=== PATIENT | male | born 1955 | race Caucasian/White ===

== ENCOUNTER → 2019-03-29 | Outpatient (CLI) | payer OTHER, BC ==
--- NOTE | 2019-03-29 10:14 | PCVCIMAG ---
APPROVED REPORT Study performed: 03/29/2019 08:40:20 EXAM: Comprehensive 2D, Doppler, and color-flow Echocardiogram Patient Location: Echo lab Status: routine BSA: 2.45 HR: 60 bpmBP: 150/78 mmHg Rhythm: NSR Other Information Study Quality: Adequate Risk Factors: Cardiac Risk Factors: Hyperlipidemia Indications CAD elevated calcium score 2D Dimensions IVSd: 11.81 (7-11mm) LVDd: 54.91 mm PWd: 12.01 (7-11mm)Ascending Ao: 38.77 (22-36mm) LVDs: 41.94 (25-40mm) Left Atrium: 47.61 (27-40mm) Aortic Root: 38.05 mm LV Single Plane 4CH: 60.45 % LV Single Plane 2CH: 65.44 % Biplane EF: 63.0 % Volumes Left Atrial Volume (Systole) Single Plane 4CH: 100.48 mLSingle Plane 2CH: 111.55 mL LA ESV Index: 44.00 mL/m2 Aortic Valve AoV Peak Gabino.: 1.44 m/s AO Peak Gr.: 8.24 mmHgLVOT Max P.01 mmHg LVOT Max V: 1.12 m/s Mitral Valve E/A Ratio: 1.7 MV Decel. Time: 218.96 ms MV E Max Gabino.: 0.83 m/s MV A Gabino.: 0.50 m/s IVRT: 96.89 ms Pulmonary Valve PV Peak Gabino.: 0.88 m/sPV Peak Gr.: 3.09 mmHg Pulmonary Vein P Vein S: 0.63 m/sP Vein A: 0.34 m/s P Vein D: 0.66 m/sP Vein A Dur.: 159.2 msec P Vein S/D Ratio: 0.95 Tricuspid Valve TR Peak Gabino.: 2.85 m/s TR Peak Gr.: 32.45 mmHg Left Ventricle The left ventricle is normal size. There is normal LV segmental wall motion. Mild concentric left ventricular hypertrophy. Left ventricular systolic function is normal. The left ventricular ejection fraction is within the normal range. LVEF is 60%. Grade II - pseudonormal filling dynamics. Right Ventricle The right ventricle is normal size. The right ventricular systolic function is normal. Atria Left atrium is moderately dilated. The right atrium size is normal. Aortic Valve The aortic valve is normal in structure. No aortic regurgitation is present. There is no aortic valvular stenosis. Mitral Valve The mitral valve is normal in structure. Trace mitral regurgitation. No evidence of mitral valve stenosis. Tricuspid Valve The tricuspid valve is normal in structure. Mild tricuspid regurgitation with PAP of 39 mmHg. Pulmonic Valve The pulmonary valve is normal in structure. There is no pulmonic valvular regurgitation. Great Vessels The aortic root is normal in size. The ascending aorta is borderline dilated to 3.9 cm. IVC is normal in size and collapses >50% with inspiration. Pericardium There is no pericardial effusion. There is no pleural effusion. <Conclusion> The left ventricle is normal size. LVEF is 60%. Left atrium is moderately dilated. The aortic valve is normal in structure. The mitral valve is normal in structure. Trace mitral regurgitation. The tricuspid valve is normal in structure. Mild tricuspid regurgitation with PAP of 39 mmHg. The pulmonary valve is normal in structure. The ascending aorta is borderline dilated to 3.9 cm. There is no pericardial effusion.
== END | disposition home or self-care (01) ==
LOC: PCVCIMAG 08:57
PROVIDERS: ATTEND Internal Medicine
DX: I36.1 Nonrheumatic tricuspid (valve) insufficiency (principal); I25.10 Atherosclerotic heart disease of native coronary artery without angina pectoris; R93.1 Abnormal findings on diagnostic imaging of heart and coronary circulation
CPT/HCPCS: 93306

== ENCOUNTER → 2019-04-01 | Outpatient (CLI) | payer OTHER, BC ==
--- NOTE | 2019-04-02 09:44 | PCVCIMAG ---
APPROVED REPORT Imaging Protocol: Rest Tc-99m/Stress Tc-99m 1 day Study performed: 04/01/2019 13:36:01 Indication: 6oo Calcium Score Patient Location: Out-Patient Stress Nurse: Lianet Krishnamurthy RN, Krai Giron RN HI Tech:Ninfa Melina [facility] Ht: 6 ft 2 in Wt: 266 lbs BSA: 2.45 m2 HR: 62 bpm BP: 140/70 mmHg BMI: 34.14 Medical History Medical History: Hyperlipidemia Medications: Aspirin, Zetia, Crestor Allergies: No known drug allergies Cardiac Risk Factors: Age Pretest Chest Pain Characteristics: No chest pain Resting Data Rest SPECT myocardial perfusion imaging was performed in supine position 45 minutes following the intravenous injection of 11.2 mCi of Tc-99m Sestamibi. Time of rest injection: 1300 Date: 04/01/2019 Administration Route: IV Administration Site: Left Arm Exercise Stress At peak stress, the patient was injected intravenously with mCi of Tc-99m Sestamibi. Time of stress injection: 1415 Date: 04/01/2019 Administration Route: IV Administration Site: Left Arm Patient continued to exercise for 1 minute(s). Gated Stress SPECT was performed 30 minutes after stress injection. The images were gated to evaluate regional wall motion and calculate left ventricular ejection fraction. Stress Test Details Stress Test: Exercise stress testing was performed using a Christiano protocol. HRMax Heart Rate (APMHR): 155 bpm Resting HR: 62 bpmTarget HR (85% APMHR): 131 bpm Max HR Achieved: 141 bpm % of APMHR: 90 Recovery HR: 64 bpm BP Resting BP: 150/70 mmHg Max BP: 154/68 mmHg Recovery BP: 157/58 mmHg ECG Resting ECG: Sinus Rhythm Stress ECG: Sinus Tachycardia Arrhythmia: PVC's Recovery ECG: Sinus Rhythm Clinical Reason for Termination: Maximal effort Stress Symptoms: Dyspnea Exercise duration: 9 min 00 sec Exercise capacity: 10.10 METs Symptoms resolved during recovery. Stress ECG Conclusion 1. Subjectively negative for ischemia 2. Elective cartographic negative for ischemia 3. Satisfactory functional capacity Study Data Post stress, the left ventricular ejection was 69%.. SSS: 1 SRS: 1 SDS: 1 TID = 0.76. Perfusion There is a medium area of severely reduced uptake in the entire segment of the inferior wall which is seen on the stress images as well as the resting images. This area thickens and moves normally and is most consistent with attenuation artifact. Wall Motion Normal left ventricular wall motion. Nuclear Conclusion ECG Findings: non-diagnostic Clinical Findings: negative for ischemia Nuclear Findings: negative for ischemia Exercise Capacity: not assessed Left Ventricular Function: normal 1. Low risk study 2. Post-rest left ventricle ejection fraction of 69% with normal contractility <Conclusion> 1. Subjectively negative for ischemia 2. Elective cartographic negative for ischemia 3. Satisfactory functional capacity
== END | disposition home or self-care (01) ==
LOC: PCVCIMAG 12:13
PROVIDERS: ATTEND Internal Medicine
DX: E78.5 Hyperlipidemia, unspecified (principal); R93.1 Abnormal findings on diagnostic imaging of heart and coronary circulation
CPT/HCPCS: 78452; 93017; A9500